=== PATIENT | male | born 1950 | race Caucasian/White ===

== ENCOUNTER 2018-11-20 18:42 | Inpatient (IN) | payer MEDICARE, MEDICAID ==
[2018-11-20] MEDS: ONDANSETRON 4 MG INJ IV (20:48)
[2018-11-20] MEDS: morphine 4 MG/ML VIAL IV (20:49)
[2018-11-20 21:50] LABS: ADD MAN DIFF? NO
[2018-11-20 22:18] LABS: BASOPHIL # 0.1 10^3/ul (0.0-0.1); BASOPHILS % 0.6 % (0.0-2.0); EOSINOPHILS # 0.1 10^3/ul (0.0-0.5); EOSINOPHILS % 1.1 % (0.0-7.0); HEMATOCRIT 46.8 % (42.0-52.0); HEMOGLOBIN 15.7 g/dl (14.0-18.0); LYMPHOCYTES # 1.4 10^3/ul (0.8-2.9); LYMPHOCYTES % 17.7 % (15.0-51.0); MEAN CORPUSCULAR HGB CONC 33.5 g/dl (32.0-37.0); MEAN CORPUSCULAR VOLUME 92.5 fl (82.0-101.0); MEAN PLATELET VOLUME 10.3 fl (7.4-10.4); MONOCYTE # 0.8 10^3/ul (0.3-0.9); MONOCYTES % 9.9 % (0.0-11.0); NEUTROPHIL # 5.7 10^3/ul (1.6-7.5); NEUTROPHILS % 70.5 % (39.0-77.0); PLATELET COUNT 237 10^3/UL (140-415); RED BLOOD COUNT 5.06 10^6/ul (4.70-6.10)
[2018-11-20 22:18] LABS: WHITE BLOOD COUNT 8.1 10^3/ul (4.8-10.8)
[2018-11-20 22:25] LABS: ALANINE AMINOTRANSFERASE 150 IU/L (13-69); ALBUMIN 4.5 g/dl (3.3-4.9); ALKALINE PHOSPHATASE 193 IU/L (42-121); ANION GAP 10 (5-13); ASPARTATE AMINO TRANSFERASE 141 IU/L (15-46); BILIRUBIN,INDIRECT 1.8 mg/dl (0-1.1); BLOOD UREA NITROGEN 13 mg/dl (7-20); CALCIUM 9.4 mg/dl (8.4-10.2); CARBON DIOXIDE 30 mmol/L (21-31); CHLORIDE 102 mmol/L (97-110); CREATININE 1.26 mg/dl (0.61-1.24); Estimated GFR 57 mL/min (>60); GLUCOSE 114 mg/dl (70-220); LIPASE 222 U/L (23-300); POTASSIUM 4.1 mmol/L (3.5-5.1); SODIUM 142 mmol/L (135-144)
[2018-11-20] MEDS ORDERED: ACETAMINOPHEN 325 MG TAB PO (23:00)
[2018-11-20] MEDS ORDERED: ONDANSETRON 4 MG INJ IV (23:00)
[2018-11-21] MEDS ORDERED: morphine 2 MG INJ IV (00:30)
[2018-11-21] MEDS ORDERED: ONDANSETRON 4 MG INJ IV (00:30)
[2018-11-21] MEDS: NACL 0.9% 3 ML SYG IV (01:34)
[2018-11-21] MEDS: DEXTROSE 5%-0.45% NACL 1,000 ML IV ×2 (01:34→10:33)
[2018-11-21 05:59] LABS: ADD MAN DIFF? NO
[2018-11-21 06:02] LABS: BASOPHILS % 0.6 % (0.0-2.0); EOSINOPHILS # 0.1 10^3/ul (0.0-0.5); EOSINOPHILS % 1.3 % (0.0-7.0); LYMPHOCYTES # 1.4 10^3/ul (0.8-2.9); MEAN CORPUSCULAR HEMOGLOBIN 30.9 pg (29.0-33.0); MEAN CORPUSCULAR HGB CONC 33.3 g/dl (32.0-37.0); MEAN CORPUSCULAR VOLUME 92.7 fl (82.0-101.0); MEAN PLATELET VOLUME 10.1 fl (7.4-10.4); MONOCYTE # 0.7 10^3/ul (0.3-0.9); MONOCYTES % 9.9 % (0.0-11.0); NEUTROPHIL # 4.8 10^3/ul (1.6-7.5); NEUTROPHILS % 67.9 % (39.0-77.0); PLATELET COUNT 214 10^3/UL (140-415); RED BLOOD COUNT 4.53 10^6/ul (4.70-6.10)
[2018-11-21 06:02] LABS: WHITE BLOOD COUNT 7.1 10^3/ul (4.8-10.8)
[2018-11-21 06:45] LABS: ALANINE AMINOTRANSFERASE 125 IU/L (13-69); ALBUMIN 3.8 g/dl (3.3-4.9); ALBUMIN/GLOBULIN RATIO 1.05; ALKALINE PHOSPHATASE 134 IU/L (42-121); ANION GAP 6 (5-13); ASPARTATE AMINO TRANSFERASE 107 IU/L (15-46); BILIRUBIN,INDIRECT 1.8 mg/dl (0-1.1); BILIRUBIN,TOTAL 2.3 mg/dl (0.2-1.3); BLOOD UREA NITROGEN 13 mg/dl (7-20); CALCIUM 9.2 mg/dl (8.4-10.2); CARBON DIOXIDE 31 mmol/L (21-31); CHLORIDE 104 mmol/L (97-110); CREATININE 1.25 mg/dl (0.61-1.24); Estimated GFR 58 mL/min (>60); GLUCOSE 136 mg/dl (70-220); MAGNESIUM 2.3 mg/dl (1.7-2.5); PHOSPHORUS 3.6 mg/dl (2.5-4.9); POTASSIUM 4.8 mmol/L (3.5-5.1); SODIUM 141 mmol/L (135-144); TOTAL PROTEIN 7.4 g/dl (6.1-8.1)
[2018-11-21 10:10] LABS: ADD UMIC NO; UR ASCORBIC ACID NEGATIVE (NEGATIVE); UR BILIRUBIN (Dip) NEGATIVE (NEGATIVE); UR BLOOD (Dip) NEGATIVE (NEGATIVE); UR CLARITY CLEAR (CLEAR); UR COLOR AMBER (YELLOW); UR GLUCOSE (Dip) NEGATIVE (NEGATIVE); UR KETONES (Dip) NEGATIVE (NEGATIVE); UR LEUKOCYTE ESTERASE (Dip) NEGATIVE Leu/ul (NEGATIVE); UR NITRITE (Dip) NEGATIVE (NEGATIVE); UR SPECIFIC GRAVITY (Dip) 1.019 (1.003-1.030); UR TOTAL PROTEIN (Dip) NEGATIVE (NEGATIVE); UR UROBILINOGEN (Dip) 1+ mg/dL (NEGATIVE)
[2018-11-21 12:55] LABS: ADD UMIC NO; UR ASCORBIC ACID NEGATIVE (NEGATIVE); UR BILIRUBIN (Dip) NEGATIVE (NEGATIVE); UR BLOOD (Dip) NEGATIVE (NEGATIVE); UR CLARITY CLEAR (CLEAR); UR COLOR AMBER (YELLOW); UR GLUCOSE (Dip) NEGATIVE (NEGATIVE); UR KETONES (Dip) NEGATIVE (NEGATIVE); UR LEUKOCYTE ESTERASE (Dip) NEGATIVE Leu/ul (NEGATIVE); UR NITRITE (Dip) NEGATIVE (NEGATIVE); UR SPECIFIC GRAVITY (Dip) 1.019 (1.003-1.030); UR TOTAL PROTEIN (Dip) NEGATIVE (NEGATIVE); UR UROBILINOGEN (Dip) 1+ mg/dL (NEGATIVE)
[2018-11-21 13:27] LABS: PROSTATE SPECIFIC ANTIGEN 0.3 ng/ml (0.0-4.0)
[2018-11-21] MEDS: INDOMETHACIN 50 MG SUPP PR (17:58)
[2018-11-22] MEDS: DEXTROSE 5%-0.45% NACL 1,000 ML IV ×4 (00:22→21:39)
[2018-11-22] MEDS: TAMSULOSIN (SR) 0.4 MG CAP PO ×2 (00:26→21:38)
[2018-11-22 05:40] LABS: ADD MAN DIFF? NO
[2018-11-22 05:49] LABS: BASOPHILS % 0.5 % (0.0-2.0); EOSINOPHILS # 0.2 10^3/ul (0.0-0.5); EOSINOPHILS % 2.3 % (0.0-7.0); HEMATOCRIT 39.9 % (42.0-52.0); HEMOGLOBIN 13.6 g/dl (14.0-18.0); LYMPHOCYTES # 1.2 10^3/ul (0.8-2.9); LYMPHOCYTES % 18.5 % (15.0-51.0); MEAN CORPUSCULAR HEMOGLOBIN 31.3 pg (29.0-33.0); MEAN CORPUSCULAR HGB CONC 34.1 g/dl (32.0-37.0); MEAN CORPUSCULAR VOLUME 91.7 fl (82.0-101.0); MEAN PLATELET VOLUME 10.1 fl (7.4-10.4); MONOCYTE # 0.7 10^3/ul (0.3-0.9); MONOCYTES % 9.9 % (0.0-11.0); NEUTROPHIL # 4.5 10^3/ul (1.6-7.5); NEUTROPHILS % 68.5 % (39.0-77.0); PLATELET COUNT 200 10^3/UL (140-415); RED BLOOD COUNT 4.35 10^6/ul (4.70-6.10); RED CELL DISTRIBUTION WIDTH 12.5 % (11.5-14.5)
[2018-11-22 05:49] LABS: WHITE BLOOD COUNT 6.6 10^3/ul (4.8-10.8)
[2018-11-22 06:33] LABS: MAGNESIUM 2.1 mg/dl (1.7-2.5)
[2018-11-22 06:33] LABS: PHOSPHORUS 3.9 mg/dl (2.5-4.9)
[2018-11-22 07:03] LABS: ALANINE AMINOTRANSFERASE 100 IU/L (13-69); ALBUMIN 3.7 g/dl (3.3-4.9); ALBUMIN/GLOBULIN RATIO 1.08; ALKALINE PHOSPHATASE 120 IU/L (42-121); ANION GAP 8 (5-13); ASPARTATE AMINO TRANSFERASE 82 IU/L (15-46); BILIRUBIN,INDIRECT 1.7 mg/dl (0-1.1); BILIRUBIN,TOTAL 2.4 mg/dl (0.2-1.3); BLOOD UREA NITROGEN 9 mg/dl (7-20); CARBON DIOXIDE 27 mmol/L (21-31); CHLORIDE 104 mmol/L (97-110); Estimated GFR > 60 mL/min (>60); GLUCOSE 122 mg/dl (70-220); SODIUM 139 mmol/L (135-144); TOTAL PROTEIN 7.1 g/dl (6.1-8.1)
[2018-11-22] MEDS ORDERED: IOHEXOL 300MG/ML 30 ML BTL (16:19)
[2018-11-22] MEDS ORDERED: CEFAZOLIN 1 GM INJ (17:39)
[2018-11-22] MEDS ORDERED: ROCURONIUM 50 MG INJ (17:39)
[2018-11-22] MEDS ORDERED: PROPOFOL 20 ML (17:39)
[2018-11-22] MEDS ORDERED: MIDAZOLAM 1 MG/ML 2 ML INJ (17:40)
[2018-11-22] MEDS ORDERED: FENTAnyl 50 MCG/ML VIAL (17:40)
[2018-11-22] MEDS: INDOMETHACIN 50 MG SUPP PR (17:58)
[2018-11-22] MEDS ORDERED: HYDROmorphONE 1 MG/5 ML IV SYRINGE IV ×3 (18:00)
[2018-11-22] MEDS ORDERED: LABETALOL HCL 20MG INJ IV (18:00)
[2018-11-22] MEDS ORDERED: FENTAnyl 50 MCG/ML VIAL IV ×3 (18:00)
[2018-11-22] MEDS ORDERED: EPHEDrine 25 MG/5 ML SYG IV (18:00)
[2018-11-22] MEDS ORDERED: METOCLOPRAMIDE 10 MG INJ IV (18:00)
[2018-11-22] MEDS ORDERED: ONDANSETRON 4 MG INJ IV (18:00)
[2018-11-22] MEDS ORDERED: hydrALAzine 20 MG INJ IV (18:00)
[2018-11-22] MEDS ORDERED: PHENYLephrine (100 MCG/ML) 10ML SYG (18:03)
[2018-11-22] MEDS ORDERED: ONDANSETRON 4 MG INJ (18:04)
[2018-11-22] MEDS ORDERED: DEXAMETHASONE 4 MG/ML 5 ML INJ (18:04)
[2018-11-22] MEDS ORDERED: KETOROLAC 30 MG INJ (18:04)
[2018-11-22] MEDS ORDERED: METOCLOPRAMIDE 10 MG INJ (18:04)
[2018-11-22] MEDS ORDERED: SUGAMMADEX SODIUM 200 MG/2 ML VIAL IV (18:11)
[2018-11-22] MEDS ORDERED: NALOXONE (0.4 MG/ML) INJ (18:21)
[2018-11-23 05:59] LABS: ALANINE AMINOTRANSFERASE 87 IU/L (13-69); ALBUMIN 3.8 g/dl (3.3-4.9); ALKALINE PHOSPHATASE 134 IU/L (42-121); ANION GAP 8 (5-13); ASPARTATE AMINO TRANSFERASE 75 IU/L (15-46); BILIRUBIN,INDIRECT 1.3 mg/dl (0-1.1); BILIRUBIN,TOTAL 1.7 mg/dl (0.2-1.3); BLOOD UREA NITROGEN 12 mg/dl (7-20); CALCIUM 8.9 mg/dl (8.4-10.2); CARBON DIOXIDE 24 mmol/L (21-31); CHLORIDE 107 mmol/L (97-110); CREATININE 1.22 mg/dl (0.61-1.24); Estimated GFR 59 mL/min (>60); GLUCOSE 182 mg/dl (70-220); POTASSIUM 4.6 mmol/L (3.5-5.1); SODIUM 139 mmol/L (135-144); TOTAL PROTEIN 7.6 g/dl (6.1-8.1)
[2018-11-23] MEDS: DEXTROSE 5%-0.45% NACL 1,000 ML IV (09:14)
[2018-11-23] MEDS: CIPROFLOXACIN 500 MG TAB PO (12:06)
== END 2018-11-23 13:35 | disposition home or self-care (01) | DRG 445 ==
LOC: 2NE 22:34 → E/R 18:42
PROC: 0FC98ZZ Extirpation of Matter from Common Bile Duct, Via Natural or Artificial Opening Endoscopic (ICD-10-PCS; principal; 2018-11-22 17:00)
PROC: 0FCC8ZZ Extirpation of Matter from Ampulla of Vater, Via Natural or Artificial Opening Endoscopic (ICD-10-PCS; 2018-11-22 17:00)
DX: K80.71 Calculus of gallbladder and bile duct without cholecystitis with obstruction (principal); N39.0 Urinary tract infection, site not specified; K76.0 Fatty (change of) liver, not elsewhere classified; E66.9 Obesity, unspecified; Z68.35 Body mass index [BMI] 35.0-35.9, adult; N28.9 Disorder of kidney and ureter, unspecified
CPT/HCPCS: 36415; 71045; 74181; 74330; 76705; 80053; 81003; 83690; 83735; 84100; 84153; 84154; 85025; 87086; 93005; 96374; 96375; 99285-25